=== PATIENT | female | born 1940 | race Asian ===

== ENCOUNTER 2021-03-16 18:37 | Emergency (ER) | payer OTHER ==
[~2021-03-16] VITALS: Ht 170.2 cm; Wt 72.6 kg
[2021-03-16 19:18] VITALS: BP 145/84; TEMP 98.2
[2021-03-16 19:45] LABS: PLATELET COUNT 263 K/uL (152-353)
[2021-03-16 19:55] LABS: POTASSIUM 3.9 mmol/L (3.6-5.2)
[2021-03-17] MEDS ORDERED: TYLENOL325 MG PO (04:44)
[2021-03-17] MEDS ORDERED: AMLODIPINE BESYLATE PO (04:44)
[2021-03-17] MEDS ORDERED: ASPIRIN DR PO (04:46)
[2021-03-17] MEDS ORDERED: ATENOLOL100 M1 PO (04:47)
[2021-03-17] MEDS ORDERED: DIVALPROEX DR PO (04:49)
[2021-03-17] MEDS ORDERED: DONEPEZIL HYDRO10 MG PO (04:50)
[2021-03-17] MEDS ORDERED: ESCI20TA PO (04:51)
[2021-03-17] MEDS ORDERED: MULTIVITAMI1 PO (04:52)
[2021-03-17] MEDS ORDERED: FIBER LAXTIV0.52 GM PO (04:53)
[2021-03-17] MEDS ORDERED: PRED10TA27 PO (04:54)
[2021-03-17] MEDS ORDERED: MAGNSUS68 PO (04:58)
== END 2021-03-16 22:15 | disposition still patient (30) ==
LOC: ED 18:37 → EDSEX 18:37 → ED 22:15
PROVIDERS: Family Medicine
DX: F03.91 Unspecified dementia, unspecified severity, with behavioral disturbance (principal); R45.1 Restlessness and agitation; Z11.52 Encounter for screening for COVID-19; Z04.6 Encounter for general psychiatric examination, requested by authority
CPT/HCPCS: 80053; 85027; 87635; 99283; J1885; J2930; U0003